=== PATIENT | male | born 1955 | race Caucasian/White ===

== ENCOUNTER 2016-09-02 08:37 | Day surgery (SDC) | payer OTHER ==
[2016-09-02] MEDS ORDERED: LACTATED RINGERS 1,000 ML IV ONE (09:04)
[2016-09-02] MEDS ORDERED: fentaNYL 250 MCG/5 ML VIAL IVP ONE (11:42)
[2016-09-02] MEDS ORDERED: MIDAZOLAM 2 MG/2 ML VIAL IVP ONE (11:42)
== END 2016-09-02 08:38 | disposition home or self-care (01) ==
PROC: 0DJD8ZZ Inspection of Lower Intestinal Tract, Via Natural or Artificial Opening Endoscopic (ICD-10-PCS; principal; 2016-09-02 09:55)
DX: Z12.11 Encounter for screening for malignant neoplasm of colon (principal); K64.8 Other hemorrhoids; K57.30 Diverticulosis of large intestine without perforation or abscess without bleeding
CPT/HCPCS: 45378; J3010; J7120